=== PATIENT | female | born 1970 | race Caucasian/White ===

== ENCOUNTER 2017-02-18 20:18 | Emergency (ER) | payer MEDICAID ==
[2017-02-18 21:00] LABS: APPEARANCE,URINE CLEAR; BILIRUBIN,URINE NEGATIVE (NEGATIVE); GLUCOSE, URINE NEGATIVE (NEGATIVE); KETONES,URINE NEGATIVE (NEGATIVE); LEUKOCYTE ESTERASE,URINE TRACE (NEGATIVE); NITRITE,URINE NEGATIVE (NEGATIVE); PROTEIN,URINE NEGATIVE (NEGATIVE); URINE SPECIFIC GRAVITY 1.002; UROBILINOGEN,URINE NEGATIVE mg/dL (<2.0)
--- NOTE | 2017-02-18 21:05 | ER Document Report ---
ED Psych Disorder / Suicide - General Chief Complaint: Psych Problem Stated Complaint: PSYCH EVAL Time seen by provider: 21:05 Mode of Arrival: Ambulatory Information source: Patient TRAVEL OUTSIDE OF THE [place] IN LAST 30 DAYS: No - HPI Patient complains to provider of: Hallucinating Onset: Other - Chronic Onset was: Gradual Quality of pain: No pain Suicide Risk Factors: Lack of social support Associated symptoms: Auditory hallucinations Similar symptoms previously: Yes Notes: Patient is a 46-year-old female who presents to the emergency room complaining of hearing voices, states is been going on for quite some time but worsening over the past few days, she states she hears voices 24 hours a day 7 days a week , and feels as though she is "in the middle of an astrograph", States she hears "voices of my family trying to tell me that I hurt my family", states it makes her agitated at times because she cannot sort out or stop the voices, she also states that the voices recently told her that she is "owned by Satan", patient denies any homicidal ideations, states that she has had suicidal ideations in the past but none at this point in time, that she just wants the voices to stop , reports that she has no family, she does currently see a psychiatrist through [facility], in fact states she has an appointment tomorrow which she canceled because she came to the emergency room instead, she has not been taking her medication since at least December, as she states she was previously prescribed Seroquel and feels as though it is too strong for her - Related Data Allergies/Adverse Reactions: ciprofloxacin [From Cipro] Allergy (Verified 11/01/16 23:03) ciprofloxacin HCl [From Cipro] Allergy (Verified 11/01/16 23:03) divalproex sodium [From Depakote] Allergy (Verified 11/01/16 23:03) milk [Milk] Allergy (Verified 11/01/16 23:03) Penicillins Allergy (Verified 11/01/16 23:03) varenicline tartrate [From Chantix] Allergy (Verified 11/01/16 23:03) cheese Allergy (Uncoded 01/02/14 13:47) depo shot Allergy (Uncoded 01/02/14 13:47) oranges Allergy (Uncoded 01/02/14 13:47) Past Medical History - General Information source: Patient - Social History Smoking Status: Current Every Day Smoker Family History: Reviewed & Not Pertinent Neurological Medical History: Reports: Hx Migraine Psychiatric Medical History: Reports: Hx Anxiety, Hx Bipolar Disorder, Hx Depression, Hx Schizophrenia Past Surgical History: Reports: Hx Tubal Ligation - Immunizations Hx Diphtheria, Pertussis, Tetanus Vaccination: No Review of Systems - Review of Systems Constitutional: No symptoms reported EENT: No symptoms reported Cardiovascular: No symptoms reported Respiratory: No symptoms reported Gastrointestinal: No symptoms reported Genitourinary: No symptoms reported Female Genitourinary: No symptoms reported Musculoskeletal: No symptoms reported Skin: No symptoms reported Hematologic/Lymphatic: No symptoms reported Neurological/Psychological: See HPI -: Yes All other systems reviewed and negative Physical Exam - Vital signs Vitals: Resp 18 02/18/17 20:20 Interpretation: Normal - General General appearance: Appears well In distress: None - HEENT Head: Normocephalic, Atraumatic Eyes: Normal Pupils: PERRL - Respiratory Respiratory status: No respiratory distress Chest status: Nontender Breath sounds: Normal Chest palpation: Normal - Cardiovascular Rhythm: Regular Heart sounds: Normal auscultation Murmur: No - Abdominal Inspection: Normal Distension: No distension Bowel sounds: Normal Tenderness: Nontender Organomegaly: No organomegaly - Back Back: Normal, Nontender - Extremities General upper extremity: Normal inspection General lower extremity: Normal inspection - Neurological Neuro grossly intact: Yes Orientation: AAOx4 [place] Coma Scale Eye Opening: Spontaneous [place] Coma Scale Verbal: Oriented [place] Coma Scale Motor: Obeys Commands [place] Coma Scale Total: 15 - Psychological Associated symptoms: Auditory hallucinations, Manic, Tangential speech - Skin Skin Temperature: Warm Skin Moisture: Dry Skin Color: Normal Course - Re-evaluation Re-evalutation: 02/19/17 03:57 Patient resting comfortably, she is calm and cooperative, although appears slightly manic with tangential speech at times, she is requesting to be placed in a mental health institution for stabilization, she denies suicidal or homicidal ideation, and does not appear to be a danger to herself at the present time, therefore IVC paper work was not completed on patient, she will remain in the emergency room as a voluntary patient to be further evaluated by the mental health team in the morning to make further recommendations, she is otherwise medically clear for transfer or discharge - Vital Signs Vital signs: Temp Pulse Resp BP Pulse Ox 98.4 F 98 20 149/89 H 99 02/18/17 20:30 02/18/17 20:30 02/18/17 20:30 02/18/17 20:30 02/18/17 20:30 - Laboratory Result Diagrams: 02/18/17 21:04 02/18/17 21:04 Laboratory results interpreted by me: 02/18/17 02/18/17 20:37 21:04 Sodium 146.0 H Calcium 11.5 H Urine Blood SMALL H Ur Leukocyte Esterase TRACE H Salicylates < 1.0 L Acetaminophen < 10 L - EKG Interpretation by De EKG shows normal: Sinus rhythm Rate: Normal Rhythm: NSR Discharge - Discharge Clinical Impression: Mental disorder Condition: Stable Disposition: PSYCH HOSP/UNIT
[2017-02-18 21:17] LABS: ABSOLUTE BASOPHILS # (AUTO) 0.1 10^3/uL (0.0-0.2); ABSOLUTE EOSINOPHILS # (AUTO) 0.1 10^3/uL (0.0-0.6); ABSOLUTE LYMPHOCYTES (AUTO) 2.6 10^3/uL (0.5-4.7); ABSOLUTE MONOCYTES (AUTO) 0.5 10^3/uL (0.1-1.4); ABSOLUTE NEUT (AUTO) 4.2 10^3/uL (1.7-8.2); BASOPHILS % (AUTO) 0.7 % (0-2); EOSINOPHILS % (AUTO) 1.5 % (0-6); HEMATOCRIT 39.4 % (36.0-47.0); HEMOGLOBIN 13.5 g/dL (12.0-15.5); HGB HCT DIFFERENCE 1.1; LYMPHOCYTES % (AUTO) 34.5 % (13-45); MEAN CORPUSCULAR HEMOGLOBIN 31.6 pg (27.0-33.4); MEAN CORPUSCULAR HGB CONC 34.2 g/dL (32.0-36.0); MEAN CORPUSCULAR VOLUME 92 fl (80-97); MONOCYTES % (AUTO) 6.4 % (3-13); RED BLOOD COUNT 4.27 10^6/uL (3.72-5.28); RED CELL DISTRIBUTION WIDTH 13.4 % (11.5-14.0); SEGMENTED NEUTROPHILS % (AUTO) 56.9 % (42-78); WHITE BLOOD COUNT 7.4 10^3/uL (4.0-10.5)
[2017-02-18 21:38] LABS: ALANINE AMINOTRANSFERASE 20 U/L (9-52); ALBUMIN 4.8 g/dL (3.5-5.0); ALCOHOL < 10 mg/dL (NONE DETECTED); ALKALINE PHOSPHATASE 70 U/L (38-126); ANION GAP 14 (5-19); ASPARTATE AMINO TRANSFERASE 21 U/L (14-36); BILIRUBIN,DIRECT 0.1 mg/dL (0.0-0.4); BILIRUBIN,TOTAL 0.4 mg/dL (0.2-1.3); BLOOD UREA NITROGEN 7 mg/dL (7-20); CALCIUM 11.5 mg/dL (8.4-10.2); CARBON DIOXIDE 29 mmol/L (22-30); CHLORIDE 103 mmol/L (98-107); CREATININE RESULT 0.74 mg/dL (0.52-1.25); GLUCOSE 97 mg/dL (75-110); POTASSIUM 4.3 mmol/L (3.6-5.0); TOTAL PROTEIN 7.4 g/dL (6.3-8.2)
[2017-02-18] MEDS: ACETAMINOPHEN 325 MG TABLET PO ONE (22:10)
--- NOTE | 2017-02-19 07:25 | EKG REPORT ---
SEVERITY:- NORMAL ECG - SINUS RHYTHM : Confirmed by: Rocael Lacey MD 19-Feb-2017 07:24:55
[2017-02-19 08:47] LABS: APPEARANCE,URINE SLIGHTLY-CLOUDY; BILIRUBIN,URINE NEGATIVE (NEGATIVE); GLUCOSE, URINE NEGATIVE (NEGATIVE); KETONES,URINE NEGATIVE (NEGATIVE); LEUKOCYTE ESTERASE,URINE MODERATE (NEGATIVE); NITRITE,URINE POSITIVE (NEGATIVE); PROTEIN,URINE NEGATIVE (NEGATIVE); URINE SPECIFIC GRAVITY 1.012; UROBILINOGEN,URINE NEGATIVE mg/dL (<2.0)
[2017-02-19 09:11] LABS: URINE BARBITURATES SCREEN NEGATIVE; URINE METHADONE SCREEN NEGATIVE; URINE OPIATES LOW NEGATIVE; URINE PHENCYCLIDINE SCREEN NEGATIVE
--- NOTE | 2017-02-19 15:14 | ER Document Report ---
ED Psych Disorder / Suicide - General Chief Complaint: Psych Problem Stated Complaint: PSYCH EVAL Mode of Arrival: Ambulatory Information source: Patient - Patient has conflicting reports on concerns and symptoms. TRAVEL OUTSIDE OF THE [place] IN LAST 30 DAYS: No - HPI Patient complains to provider of: Hallucinating Normal mood: Yes - hyper verbal Associated symptoms: Normal affect, Auditory hallucinations - Patient endorses Auditory hallucinations however is not demonstrating behaviour of responding to internal stimuli Notes: Patient is a 46-year-old female who presents to the emergency room complaining of hearing voices, states is been going on for quite some time but worsening over the past few days, she states she hears voices 24 hours a day 7 days a week , and feels as though she is "in the middle of an astrograph", States she hears "voices of my family trying to tell me that I hurt my family", states it makes her agitated at times because she cannot sort out or stop the voices, she also states that the voices recently told her that she is "owned by Zones", patient denies any homicidal ideations, states that she has had suicidal ideations in the past but none at this point in time, that she just wants the voices to stop , reports that she has no family, she does currently see a psychiatrist through [facility], in fact states she has an appointment tomorrow which she canceled because she came to the emergency room instead, she has not been taking her medication since at least December, as she states she was previously prescribed Seroquel and feels as though it is too strong for her. Patient states that she hears voices all the time. She states they are making her suicidal and homicidal so she is arguing with them. She states she has been thinking of ways to hurt herself. she continued to disclose the serquel is not working but the voices are not as bad here in the hospital. She states the voices are "manipulating me and telling me I have EPS." She continued disclose she lives alone and has no family or friends. She states that she does better when she is with people so needs in patient but she has to get away from living with people in the half-way. The patient states she went to [facility] yesterday but they were unable to see her so she came to [facility]. When clinician asked for clarification because reports indicated the patient stated she cancelled her [facility] appointment, the patient confirmed that she made an appointment a month ago but she could not wait any longer. Patient provided a list of medications that have not worked in the past; "something is blocking it from working" because her mother is into witchcraft. Patient is alert and orientated to person, place, time and circumstance. Mood is euthymic, hyper verbal with normal affect. Patient denies suicidal and homicidal ideation; patient reports. Thought processes were mostly organized though rapid. Conversational speech was rapid, and at times tangential. Intellectual abilities were estimated in the low average range. Attention and concentration was fair. Insight, judgment, and impulse control was fair. 296.80 (F31.9) Unspecified Bipolar Disorder per history provided by patient Impression/Plan: Patient is psychiatrically clear for discharge. Patient has an identified out-patient mental health provider with [facility]; however, cancelled the appointment because she came to [facility]. Patient reports and demonstrated and delusions of christianity in references and auditory hallucinations; however, she demonstrated manipulative behaviour as evidenced by self reports to the ED attending physician with conflicting reports to clinician. She states that she stopped taking her medication (Seroquel) because it was too strong. Patient states she can tell the difference between her hallucinations and reality. Patient denies thoughts of harming herself or others. Dr. Otero was consulted on the care and management of this patient. Attending physician is in agreement with recommendations and disposition. - Related Data Allergies/Adverse Reactions: ciprofloxacin [From Cipro] Allergy (Verified 11/01/16 23:03) ciprofloxacin HCl [From Cipro] Allergy (Verified 11/01/16 23:03) divalproex sodium [From Depakote] Allergy (Verified 11/01/16 23:03) milk [Milk] Allergy (Verified 11/01/16 23:03) Penicillins Allergy (Verified 11/01/16 23:03) varenicline tartrate [From Chantix] Allergy (Verified 11/01/16 23:03) cheese Allergy (Uncoded 01/02/14 13:47) depo shot Allergy (Uncoded 01/02/14 13:47) oranges Allergy (Uncoded 01/02/14 13:47) Past Medical History - General Information source: Patient - Social History Smoking Status: Current Every Day Smoker Chew tobacco use (# tins/day): No Frequency of alcohol use: None Family History: Reviewed & Not Pertinent Neurological Medical History: Reports: Hx Migraine Psychiatric Medical History: Reports: Hx Anxiety, Hx Bipolar Disorder, Hx Depression, Hx Schizophrenia Past Surgical History: Reports: Hx Tubal Ligation - Immunizations Hx Diphtheria, Pertussis, Tetanus Vaccination: No Physical Exam - Vital signs Vitals: Resp 18 02/18/17 20:20 Course - Vital Signs Vital signs: Temp Pulse Resp BP Pulse Ox 97.8 F 73 18 109/76 100 02/19/17 11:49 02/19/17 11:49 02/19/17 11:49 02/19/17 11:49 02/19/17 11:49 - Laboratory Result Diagrams: 02/18/17 21:04 02/18/17 21:04 Laboratory results interpreted by me: 02/18/17 02/18/17 02/19/17 20:37 21:04 08:00 Sodium 146.0 H Calcium 11.5 H Urine Blood SMALL H Urine Nitrite POSITIVE H Ur Leukocyte Esterase TRACE H MODERATE H Urine Ascorbic Acid 20 H Salicylates < 1.0 L Acetaminophen < 10 L Discharge - Discharge Clinical Impression: Mental health disorder Condition: Stable Disposition: HOME, SELF-CARE Additional Instructions: Hallucinations You seem to be having hallucinations. Hallucinations are seeing, hearing, or feeling things that don't exist. These symptoms commonly occur with drug abuse and schizophrenia. Drugs like PCP, LSD, MDMA, peyote, and "psychedelic mushrooms" can cause frightening hallucinations. Users of methamphetamine or crack cocaine often see and feel bugs crawling on their skin. Patients with schizophrenia may hear voices that no one else can hear. The delusions of schizophrenia often involve conspiracies or relationships that are not real. When symptoms are due to drug abuse, the mental state usually improves as the drug wears off. Someone you trust should be with you until you are better, to protect you and calm your fears. Tranquilizer medicine is helpful at controlling hallucinations, anxiety, and deluded thoughts. Get a proper diet and enough sleep. Most patients do very well when they get proper medical treatment and social support. You should return at once if your symptoms get worse, if you are having suicidal thoughts or thoughts about hurting others, or if you feel that you are in danger. Patient is recommended to follow up with out patient services through [facility]. Referrals: RAHUL CARTWRIGHT MD [Primary Care Provider] - Follow up as needed
[2017-02-19 15:46] VITALS: BP 131/78
[2017-02-19] MEDS ORDERED: OLANZAPINE INJ/PF 10 MG SDV IM ONE (16:17)
== END 2017-02-19 16:27 | disposition home or self-care (01) ==
LOC: ER 20:18
DX: F99 Mental disorder, not otherwise specified (principal); F31.9 Bipolar disorder, unspecified; R44.3 Hallucinations, unspecified; F17.200 Nicotine dependence, unspecified, uncomplicated
CPT/HCPCS: 93005; 99284; 36415; 80307 ×4; 84703; 85025; 80053; 81001; 93010; J3490

== ENCOUNTER → 2017-04-23 | Outpatient (CLI) | payer MEDICAID ==
--- NOTE | 2017-04-23 13:29 | WOMENS IMAGING REPORT ---
EXAM DESCRIPTION: BILAT SCREENING MAMMO W/CAD COMPLETED DATE/TIME: 04/23/2017 12:32 pm REASON FOR STUDY: Z12.31, ROUTINE SCREENING MAMMO Z12.31 ENCNTR SCREEN MAMMOGRAM FOR MALIGNANT NEOP LASM OF MARCOS COMPARISON: 2012, 2013. TECHNIQUE: Standard craniocaudal and mediolateral oblique views of each breast recorded using digita l acquisition. LIMITATIONS: None. FINDINGS: No masses, calcifications or architectural distortion. No areas of suspicion. Read with the assistance of CAD. .[facility] - R2 Cenova Version 1.3 .[facility] Imaging - R2 Cenova Version 1.3 .[facility] Imaging - R2 Cenova Version 2.4 .[facility] [place] R2 Cenova Version 2.4 .[facility] - R2 Hair Clipper Power Version 9.2 IMPRESSION: NORMAL MAMMOGRAM. BIRADS 1. BREAST DENSITY: c. The breasts are heterogeneously dense, which may obscure small masses. BIRAD: 1 NEGATIVE RECOMMENDATION: ROUTINE SCREENING COMMENT: The patient has been notified of the results by letter per SA requirements. Additional no tification policies are in place for contacting patient with suspicious or incomplete findings. Quality ID #[id number]: The [employer] recommends an annual screening mammogram for women aged 40 years or over. This facility utilizes a reminder system to ensure that all patients receive reminder letters, and/or direct phone calls for appointments. This includes reminders for routine scr eening mammograms, diagnostic mammograms, or other Breast Imaging Interventions when appropriate. Th is patient will be placed in the appropriate reminder system. The [employer] (ACR) has developed recommendations for screening MRI of the breast s in certain patient populations, to be used in conjunction with mammography. Breast MRI surveillanc e may be appropriate for women with more than 20% lifetime risk of developing breast cancer as deter mined by genetic testing, significant family history of the disease, or history of mantle radiation f or Hodgkins Disease. ACR Practice Guidelines 2008. TECHNICAL DOCUMENTATION: FINDING NUMBER: (1) ASSESSMENT: (1) JOB ID: [id number] [employer]- All Rights Reserved
== END ==
LOC: WI 11:32
PROVIDERS: ATTEND Nurse Practitioner Family
DX: Z12.31 Encounter for screening mammogram for malignant neoplasm of breast (principal)
CPT/HCPCS: 77067; G0202

== ENCOUNTER → 2018-05-18 | Outpatient (CLI) | payer MEDICAID ==
--- NOTE | 2018-05-18 13:10 | WOMENS IMAGING REPORT ---
EXAM DESCRIPTION: BILAT SCREENING MAMMO W/CAD COMPLETED DATE/TIME: 05/18/2018 12:51 pm REASON FOR STUDY: BILATERAL MAMMO SCREENING/Z12.31 Z12.31 ENCNTR SCREEN MAMMOGRAM FOR MALIGNANT FRED PLASM OF MARCOS COMPARISON: Multiple since 2012 TECHNIQUE: Standard craniocaudal and mediolateral oblique views of each breast recorded using [employer] J[employer] l acquisition. LIMITATIONS: None. FINDINGS: RIGHT BREAST MASSES: No suspicious masses. CALCIFICATIONS: No new or suspicious calcifications. ARCHITECTURAL DISTORTION: None. DEVELOPING DENSITY: None. ASYMMETRY: None noted. OTHER: No other significant findings. LEFT BREAST MASSES: In the left breast 11 to 12 o'clock position, about 6 cm from the nipple there is a mammograp hic nodule versus superimposed shadows. This requires further investigation with cone compression vi ews, left 90 mediolateral view, and left breast ultrasound. CALCIFICATIONS: No new or suspicious calcifications. ARCHITECTURAL DISTORTION: None. DEVELOPING DENSITY: None. ASYMMETRY: None noted. OTHER: No other significant findings. Read with the assistance of CAD. .[facility] - R2 Cenova Version 1.3 .[facility] Imaging - R2 Cenova Version 1.3 .[facility] Imaging - R2 Cenova Version 2.4 .[facility] - R2 Cenova Version 2.4 .[facility] - R2 Solution Design And Analysis Manager Version 9.2 IMPRESSION: No mammographic evidence for malignancy right breast. Nodule versus superimposed shadows 11 to 12 o'clock position left breast, for which diagnostic mammog judy and ultrasound are recommended for followup BREAST DENSITY: b. There are scattered areas of fibroglandular density. BIRAD: 0 Incomplete: Needs Additional Imaging Evaluation and/or prior Mammograms for Comparison. RECOMMENDATION: RECOMMENDED FOLLOW-UP: Left breast diagnostic mammograms and ultrasound The patient will be contacted for additional imaging. COMMENT: The patient has been notified of the results by letter per SA requirements. Additional no tification policies are in place for contacting patient with suspicious or incomplete findings. Quality ID #[id number]: The [employer] recommends an annual screening mammogram for women aged 40 years or over. This facility utilizes a reminder system to ensure that all patients receive reminder letters, and/or direct phone calls for appointments. This includes reminders for routine scr eening mammograms, diagnostic mammograms, or other Breast Imaging Interventions when appropriate. Th is patient will be placed in the appropriate reminder system. The [employer] (ACR) has developed recommendations for screening MRI of the breast s in certain patient populations, to be used in conjunction with mammography. Breast MRI surveillanc e may be appropriate for women with more than 20% lifetime risk of developing breast cancer as deter mined by genetic testing, significant family history of the disease, or history of mantle radiation f or Hodgkins Disease. ACR Practice Guidelines 2008. TECHNICAL DOCUMENTATION: FINDING NUMBER: (1) ASSESSMENT: (1) JOB ID: [id number] [employer]- All Rights Reserved Reading location - IP/workstation name: [facility]
== END ==
LOC: WI 12:44
PROVIDERS: ATTEND Nurse Practitioner Family
DX: Z12.31 Encounter for screening mammogram for malignant neoplasm of breast (principal); R92.0 Mammographic microcalcification found on diagnostic imaging of breast
CPT/HCPCS: 77067

== ENCOUNTER → 2018-05-28 | Outpatient (CLI) | payer MEDICAID ==
--- NOTE | 2018-05-28 17:07 | WOMENS IMAGING REPORT ---
EXAM DESCRIPTION: LEFT DIAGNOSTIC MAMMO W/CAD; U/S BREAST UNILAT LIMITED COMPLETED DATE/TIME: 05/28/2018 11:35 am; 05/28/2018 11:57 am REASON FOR STUDY: BREAST LEFT LUMP/N63.22; LEFT BREAST; N63.22 N63.0 UNSPECIFIED LUMP IN UNSPECIFIE D BREAST COMPARISON: None. TECHNIQUE: Cone compression craniocaudal and mediolateral oblique images of the breast recorded with digital acquisition. Left breast 90 mediolateral view and MLO view. Left breast ultrasound was also performed. LIMITATIONS: None. FINDINGS: BREAST: Left MASSES: No suspicious masses. Findings described on screening mammograms 05/18/2018 likely represented superimposed shadows. No discrete mammographic mass is identified in the 11 to 12 o'clock position left breast. CALCIFICATIONS: No new or suspicious calcifications. ARCHITECTURAL DISTORTION: None. DEVELOPING DENSITY: None. ASYMMETRY: None noted. OTHER: No other significant findings. Read with the assistance of CAD. .[facility] - R2 Cenova Version 1.3 .[facility] Imaging - R2 Cenova Version 1.3 .[facility] Imaging - R2 Cenova Version 2.4 .[facility] [place] R2 Cenova Version 2.4 .[facility] - R2 Desk Reporter Version 9.2 Left breast ultrasound: Ultrasound of the left breast from the 10 o'clock to the 1 to 2 o'clock position was performed. Ther e is a 4 mm benign intramammary lymph node at the 1 o'clock position. No other focal findings. No c ysts. No masses. No worrisome acoustic absorption IMPRESSION: No mammographic or sonographic evidence for malignancy right breast BREAST DENSITY: b. There are scattered areas of fibroglandular density. BIRAD: 1 Negative. RECOMMENDATION: RECOMMENDED FOLLOW UP: Please continue yearly bilateral screening mammography/tomosy nthesis in May 2019 SPECIFIC INTERVENTION/IMAGING/CONSULTATION RECOMMENDED:No additional intervention/ imaging/consultati on needed at this time. COMMUNICATION:Patient notified by letter COMMENT: The patient has been notified of the results by letter per MQSA requirements. Additional no tification policies are in place for contacting patient with suspicious or incomplete findings. Quality ID #[id number]: The [place] [employer] recommends an annual screening mammogram for women aged 40 years or over. This facility utilizes a reminder system to ensure that all patients receive reminder letters, and/or direct phone calls for appointments. This includes reminders for routine scr eening mammograms, diagnostic mammograms, or other Breast Imaging Interventions when appropriate. Th is patient will be placed in the appropriate reminder system. The [place] [employer] (ACR) has developed recommendations for screening MRI of the breast s in certain patient populations, to be used in conjunction with mammography. Breast MRI surveillanc e may be appropriate for women with more than 20% lifetime risk of developing breast cancer as deter mined by genetic testing, significant family history of the disease, or history of mantle radiation f or Hodgkins Disease. ACR Practice Guidelines 2008. TECHNICAL DOCUMENTATION: FINDING NUMBER: (1) ASSESSMENT: (1) JOB ID: [id number] [employer]- All Rights Reserved Reading location - IP/workstation name: [email or web address]
--- NOTE | 2018-05-28 17:07 | WOMENS IMAGING REPORT ---
EXAM DESCRIPTION: LEFT DIAGNOSTIC MAMMO W/CAD; U/S BREAST UNILAT LIMITED COMPLETED DATE/TIME: 05/28/2018 11:35 am; 05/28/2018 11:57 am REASON FOR STUDY: BREAST LEFT LUMP/N63.22; LEFT BREAST; N63.22 N63.0 UNSPECIFIED LUMP IN UNSPECIFIE D BREAST COMPARISON: None. TECHNIQUE: Cone compression craniocaudal and mediolateral oblique images of the breast recorded with digital acquisition. Left breast 90 mediolateral view and MLO view. Left breast ultrasound was also performed. LIMITATIONS: None. FINDINGS: BREAST: Left MASSES: No suspicious masses. Findings described on screening mammograms 05/18/2018 likely represented superimposed shadows. No discrete mammographic mass is identified in the 11 to 12 o'clock position left breast. CALCIFICATIONS: No new or suspicious calcifications. ARCHITECTURAL DISTORTION: None. DEVELOPING DENSITY: None. ASYMMETRY: None noted. OTHER: No other significant findings. Read with the assistance of CAD. .[facility] - R2 Cenova Version 1.3 .[facility] - R2 Cenova Version 1.3 .[facility] - R2 Cenova Version 2.4 .[facility] [place] R2 Cenova Version 2.4 .[facility] - R2 Band Sawyer Version 9.2 Left breast ultrasound: Ultrasound of the left breast from the 10 o'clock to the 1 to 2 o'clock position was performed. Ther e is a 4 mm benign intramammary lymph node at the 1 o'clock position. No other focal findings. No c ysts. No masses. No worrisome acoustic absorption IMPRESSION: No mammographic or sonographic evidence for malignancy right breast BREAST DENSITY: b. There are scattered areas of fibroglandular density. BIRAD: 1 Negative. RECOMMENDATION: RECOMMENDED FOLLOW UP: Please continue yearly bilateral screening mammography/tomosy nthesis in May 2019 SPECIFIC INTERVENTION/IMAGING/CONSULTATION RECOMMENDED:No additional intervention/ imaging/consultati on needed at this time. COMMUNICATION:Patient notified by letter COMMENT: The patient has been notified of the results by letter per MQSA requirements. Additional no tification policies are in place for contacting patient with suspicious or incomplete findings. Quality ID #[id number]: The [employer] recommends an annual screening mammogram for women aged 40 years or over. This facility utilizes a reminder system to ensure that all patients receive reminder letters, and/or direct phone calls for appointments. This includes reminders for routine scr eening mammograms, diagnostic mammograms, or other Breast Imaging Interventions when appropriate. Th is patient will be placed in the appropriate reminder system. The [employer] ([employer]) has developed recommendations for screening MRI of the breast s in certain patient populations, to be used in conjunction with mammography. Breast MRI surveillanc e may be appropriate for women with more than 20% lifetime risk of developing breast cancer as deter mined by genetic testing, significant family history of the disease, or history of mantle radiation f or Hodgkins Disease. ACR Practice Guidelines 2008. TECHNICAL DOCUMENTATION: FINDING NUMBER: (1) ASSESSMENT: (1) JOB ID: [id number] [employer]- All Rights Reserved Reading location - IP/workstation name: [email or web address]
== END ==
LOC: WI 11:15
PROVIDERS: ATTEND Nurse Practitioner Family
DX: N63.22 Unspecified lump in the left breast, upper inner quadrant (principal)
CPT/HCPCS: 76642

== ENCOUNTER 2018-07-09 15:21 | Emergency (ER) | payer MEDICAID ==
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
[2018-07-09 16:47] LABS: ABSOLUTE BASOPHILS # (AUTO) 0.1 10^3/uL (0.0-0.2); ABSOLUTE EOSINOPHILS # (AUTO) 0.1 10^3/uL (0.0-0.6); ABSOLUTE LYMPHOCYTES (AUTO) 2.2 10^3/uL (0.5-4.7); ABSOLUTE MONOCYTES (AUTO) 0.5 10^3/uL (0.1-1.4); ABSOLUTE NEUT (AUTO) 6.1 10^3/uL (1.7-8.2); BASOPHILS % (AUTO) 1.1 % (0-2); EOSINOPHILS % (AUTO) 0.9 % (0-6); HEMATOCRIT 45.3 % (36.0-47.0); HEMOGLOBIN 15.2 g/dL (12.0-15.5); LYMPHOCYTES % (AUTO) 24.9 % (13-45); MEAN CORPUSCULAR HEMOGLOBIN 30.7 pg (27.0-33.4); MEAN CORPUSCULAR HGB CONC 33.5 g/dL (32.0-36.0); MEAN CORPUSCULAR VOLUME 92 fl (80-97); MONOCYTES % (AUTO) 5.9 % (3-13); PLATELET COUNT 323 10^3/uL (150-450); RED BLOOD COUNT 4.94 10^6/uL (3.72-5.28); RED CELL DISTRIBUTION WIDTH 13.7 % (11.5-14.0); SEGMENTED NEUTROPHILS % (AUTO) 67.2 % (42-78); TOTAL CELLS COUNTED % (AUTO) 100 %
[2018-07-09 16:49] LABS: ALANINE AMINOTRANSFERASE 18 U/L (9-52); ALBUMIN 4.8 g/dL (3.5-5.0); ALKALINE PHOSPHATASE 110 U/L (38-126); ANION GAP 16 (5-19); ASPARTATE AMINO TRANSFERASE 20 U/L (14-36); BILIRUBIN,DIRECT 0.4 mg/dL (0.0-0.4); BILIRUBIN,TOTAL 0.8 mg/dL (0.2-1.3); BLOOD UREA NITROGEN 9 mg/dL (7-20); CARBON DIOXIDE 28 mmol/L (22-30); CHLORIDE 101 mmol/L (98-107); GLUCOSE 103 mg/dL (75-110); POTASSIUM 4.1 mmol/L (3.6-5.0); SODIUM 144.5 mmol/L (137-145); TOTAL PROTEIN 7.9 g/dL (6.3-8.2)
[2018-07-09 16:51] LABS: ACETAMINOPHEN < 10 ug/mL (10-30); ALCOHOL < 10 mg/dL (NONE DETECTED); SALICYLATE < 1.0 mg/dL (2.0-20.0)
[2018-07-09 17:40] LABS: APPEARANCE,URINE SLIGHTLY-CLOUDY; BILIRUBIN,URINE NEGATIVE (NEGATIVE); COLOR,URINE YELLOW; GLUCOSE, URINE NEGATIVE (NEGATIVE); KETONES,URINE NEGATIVE (NEGATIVE); LEUKOCYTE ESTERASE,URINE LARGE (NEGATIVE); NITRITE,URINE NEGATIVE (NEGATIVE); PROTEIN,URINE NEGATIVE (NEGATIVE); URINE SPECIFIC GRAVITY 1.009; UROBILINOGEN,URINE NEGATIVE mg/dL (<2.0)
--- NOTE | 2018-07-09 17:53 | EKG REPORT ---
SEVERITY:- NORMAL ECG - SINUS RHYTHM : Confirmed by: Rocael Lacey MD 09-Jul-2018 17:52:12
[2018-07-09 18:02] LABS: URINE AMPHETAMINES SCREEN NEGATIVE; URINE BARBITURATES SCREEN NEGATIVE; URINE BENZODIAZEPINES SCREEN NEGATIVE; URINE COCAINE SCREEN NEGATIVE; URINE MARIJUANA (THC) SCREEN NEGATIVE; URINE METHADONE SCREEN NEGATIVE; URINE PHENCYCLIDINE SCREEN NEGATIVE
[2018-07-09] MEDS ORDERED: IBUPROFEN 600 MG TABLET PO ONE (18:49)
[2018-07-09] MEDS ORDERED: HALOPERIDOL LACTATE INJ 5 MG/1 ML VIAL IM PRN (18:50)
[2018-07-09] MEDS ORDERED: SULFAMETHOXAZOLE/TRIMETHOPRIM 800-160 MG TABLET PO ONE (18:52)
--- NOTE | 2018-07-10 09:57 | ER Document Report ---
Doctor's Note Notes: 07/10/18 09:57 Patient has been seen and evaluated resting comfortably no acute distress. Laboratory values previous provider note and vital signs have been evaluated. Patient otherwise looks to be stable for disposition/transfer. Resting comfortably eating breakfast no complaints at this time.
[2018-07-10 10:26] VITALS: BP 117/64
--- NOTE | 2018-07-12 09:37 | PSYCHOLOGICAL NOTE ---
Psych Note - Psych Note Psych Note: Reason for Consult: psychosis pt to pivot with complaints of feeling suicidal for several weeks. patient has history of schizoaffective disorder; bipolar type and is reported to be non compliant with medications. Patient reports having visual and auditory hallucinations. Patient reports she "needs psychiatric help." She disclosed that she "hears voices, is dizzy, sees a light, has major depression, anxiety, social anxiety, phobias, and fears." She confirm she has an outpatient mental health provider with [facility] but has not gone since February when she stopped taking her medications; "It doesn't work so I stopped taking them." When asked about family or friends as a support system, patient responded that she does not talk to them then stated she thinks she might have killed her family. Patient provided the names Farooq Wall, Nichelle Wall, and Farooq Wall Jr. (clinician notes a cursory internet search did not provide any information on possible deaths). Clinician remind the patient that during a previous visit in October of 2016 she disclosed that children were picked up by her [id number] and now live with her ex-. (11/03/2016 "She continued to state that her children were picked up by her [id number] and she has not had any contact with them for the most part in 7 years. She states the children live with her ex-. She states that when she does have contact the children are very short with her and don't want to be with her"). After the patient was reminded of what she disclosed she stated "you know what happened to my family...oh, but I was just thinking that is what happened back then...don't know for sure that is what happened." Patient disclosed distress at living alone; "there is nothing there for me...I am by myself." When it was explained the patient can not use inpatient psychiatric treatment for social needs (ie not living alone) she asked about assisted living. Patient started to become agitated and stated "I live alone...I have no connection to others...I am trying to reach out and make a connection....I should just kill myself then....no one else is forced to live alone...why are you making me live alone..." Patient is alert and orientated to person, place, time and circumstance. Mood is overall dyphoric with moments of irritability when she perceives not getting help; affect is congruent with mood. Patient endorses passive suicidal ideation , ie no plan means or intent. She denies homicidal ideation. Patient discloses a fixated delusion of having killed her family; this has been documented for at least the last 4 years. Clinician did conduct an internet search of the names the patient provided; no information was listed. thought process for organized and linear. Thought content was focused on not wanting to live alone. Eye contact was well maintained. Conversational speech was within normal rate tone and prosody. Attention and concentration are fair. Insight, judgment and impulse control are fair. No Medication recommendations at this time 295.70 (F25.0) Schizoaffective Disorder, Bipolar type per history provided by patient Impression/Plan: Patient is clear from acute psychiatric services. Patient has an identified out-patient mental health provider with [facility]; however, did not make an appointment with them. She was considered a poor historian of any information as her story changed when talking to different [facility] staff and each time an answer or solution was provided. Patient disclosed to [facility] ED staff upon arrival she had thoughts of cutting her wrist, her attending physician was told she wanted to use her neighbor's gun or drive off a bridge. She continued to disclose to her attending physician that she stopped taking her medication because she was afraid she would overdose on them; however, we she talked to this clinician she stated she stopped taking them because they did not work. when speaking to this clinician she spoke in vague reference to suicide and did not provide a specific plan when provided appropriate treatment plan; "I should just kill myself then...no one else is forced to live alone." She became frustrated because she did not receive the answers she wanted, rather the information necessary to assist her in her mental health treatment and social treatment. Patient appears to be very focused on not living alone and requested inpatient psychiatric treatment or assisted living. She endorsed auditory hallucinations but reported they are daily and are normal; patient did not demonstrate any indication she was responding to internal stimuli, ie organized and linear thought processes, good eye contact, and conversational speech was within normal rate tone and prosody. Dr. Otero was consulted on the care and management of this patient attending physician is in agreement with recommendations and disposition.
== END 2018-07-10 10:26 | disposition home or self-care (01) ==
LOC: ER 15:21
DX: F25.0 Schizoaffective disorder, bipolar type (principal); T43.596A Underdosing of other antipsychotics and neuroleptics, initial encounter; T43.226A Underdosing of selective serotonin reuptake inhibitors, initial encounter; T42.1X6A Underdosing of iminostilbenes, initial encounter; Z91.128 Patient's intentional underdosing of medication regimen for other reason; Z91.14 Patient's other noncompliance with medication regimen; I10 Essential (primary) hypertension; R45.851 Suicidal ideations; F41.9 Anxiety disorder, unspecified; R51 Headache; Z91.5 Personal history of self-harm; Z88.1 Allergy status to other antibiotic agents; Z88.8 Allergy status to other drugs, medicaments and biological substances; Z91.011 Allergy to milk products; Z91.018 Allergy to other foods
CPT/HCPCS: 93005; 99285; 96372; 36415; 87086; 80307 ×4; 85025; 81025; 87088; 80053; 81001; 87186; 93010; J1630; J3490 ×2

== ENCOUNTER 2018-11-08 23:48 | Emergency (ER) | payer MEDICAID, OTHER ==
[2018-11-09] MEDS ORDERED: DIPH/PERTUSS(ACELL)/TETANUS VAC/PF 0.5 ML SYR (>=10YO) IM ONE (00:02)
[2018-11-09] MEDS ORDERED: IBUPROFEN 600 MG TABLET PO ONE ×2 (00:02→01:39)
[2018-11-09] MEDS ORDERED: ACETAMINOPHEN 325 MG TABLET PO ONE ×2 (00:02→01:39)
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
[2018-11-09] MEDS ORDERED: LIDOCAINE 1%/EPINEPHRINE INJ 20 ML VIAL INJ ONE (00:26)
--- NOTE | 2018-11-09 00:31 | RADIOLOGY REPORT (SQ) ---
EXAM DESCRIPTION: XR FINGERS COMPLETED DATE/TME: 11/09/2018 00:02 CLINICAL HISTORY: 48 years, Female, 2nd digit, crush injury COMPARISON: None. NUMBER OF VIEWS: 3 TECHNIQUE: 3 view second digit LIMITATIONS: None. FINDINGS: Soft tissue swelling of the second digit. Negative for acute fracture or dislocation. Joint spaces are preserved IMPRESSION: Soft tissue injury of the second digit. No acute osseous abnormality copyright 2010 [email or web address]- All Rights Reserved
[2018-11-09 02:26] VITALS: BP 109/74
== END 2018-11-09 02:26 | disposition home or self-care (01) ==
LOC: ER 23:48
DX: S61.211A Laceration without foreign body of left index finger without damage to nail, initial encounter (principal); S69.92XA Unspecified injury of left wrist, hand and finger(s), initial encounter; W22.09XA Striking against other stationary object, initial encounter; Z88.0 Allergy status to penicillin; Z88.3 Allergy status to other anti-infective agents; Z91.011 Allergy to milk products; Z23 Encounter for immunization
CPT/HCPCS: 99284; 90471; 73140; 90715; 12001; J3490 ×3

== ENCOUNTER 2018-11-19 16:19 | Emergency (ER) | payer MEDICAID ==
[2018-11-19 16:25] VITALS: BP 116/66
--- NOTE | 2018-11-19 16:35 | ER Document Report ---
ED Medical Screen (RME) - General Chief Complaint: Finger Injury Stated Complaint: FINGER SWELLING Time Seen by Provider: 11/19/18 16:32 Notes: Left index finger distal phalanx abscess, after removal of the suture material. Patient states she is hearing voices and feeling depressed and suicidal. TRAVEL OUTSIDE OF THE [place] IN LAST 30 DAYS: No - Related Data Allergies/Adverse Reactions: ciprofloxacin [From Cipro] Allergy (Verified 11/19/18 16:21) ciprofloxacin HCl [From Cipro] Allergy (Verified 11/19/18 16:21) divalproex sodium [From Depakote] Allergy (Verified 11/19/18 16:21) milk [Milk] Allergy (Verified 11/19/18 16:21) Penicillins Allergy (Verified 11/19/18 16:21) varenicline tartrate [From Chantix] Allergy (Verified 11/19/18 16:21) cheese Allergy (Uncoded 11/19/18 16:21) depo shot Allergy (Uncoded 11/19/18 16:21) oranges Allergy (Uncoded 11/19/18 16:21) Past Medical History Neurological Medical History: Reports: Hx Migraine Renal/ Medical History: Denies: Hx Peritoneal Dialysis Psychiatric Medical History: Reports: Hx Anxiety, Hx Bipolar Disorder, Hx Depression, Hx Schizophrenia Past Surgical History: Reports: Hx Tubal Ligation - Immunizations Hx Diphtheria, Pertussis, Tetanus Vaccination: No Physical Exam - Vital signs Vitals: Temp Pulse Resp BP Pulse Ox 97.9 F 59 L 16 116/66 98 11/19/18 16:23 11/19/18 16:23 11/19/18 16:23 11/19/18 16:23 11/19/18 16:23 Course - Vital Signs Vital signs: Temp Pulse Resp BP Pulse Ox 97.9 F 59 L 16 116/66 98 11/19/18 16:23 11/19/18 16:23 11/19/18 16:23 11/19/18 16:23 11/19/18 16:23
[2018-11-19 17:12] LABS: ABSOLUTE EOSINOPHILS # (AUTO) 0.1 10^3/uL (0.0-0.6); ABSOLUTE LYMPHOCYTES (AUTO) 2.5 10^3/uL (0.5-4.7); ABSOLUTE MONOCYTES (AUTO) 0.4 10^3/uL (0.1-1.4); ABSOLUTE NEUT (AUTO) 4.6 10^3/uL (1.7-8.2); BASOPHILS % (AUTO) 0.4 % (0-2); EOSINOPHILS % (AUTO) 1.2 % (0-6); HEMATOCRIT 43.1 % (36.0-47.0); HEMOGLOBIN 14.6 g/dL (12.0-15.5); LYMPHOCYTES % (AUTO) 32.5 % (13-45); MEAN CORPUSCULAR HEMOGLOBIN 31.4 pg (27.0-33.4); MEAN CORPUSCULAR HGB CONC 33.9 g/dL (32.0-36.0); MEAN CORPUSCULAR VOLUME 93 fl (80-97); MONOCYTES % (AUTO) 5.8 % (3-13); PLATELET COUNT 309 10^3/uL (150-450); RED BLOOD COUNT 4.65 10^6/uL (3.72-5.28); RED CELL DISTRIBUTION WIDTH 14.3 % (11.5-14.0); SEGMENTED NEUTROPHILS % (AUTO) 60.1 % (42-78); TOTAL CELLS COUNTED % (AUTO) 100 %; WHITE BLOOD COUNT 7.7 10^3/uL (4.0-10.5)
[2018-11-19 17:14] LABS: APPEARANCE,URINE CLEAR; BILIRUBIN,URINE NEGATIVE (NEGATIVE); COLOR,URINE COLORLESS; GLUCOSE, URINE NEGATIVE (NEGATIVE); KETONES,URINE NEGATIVE (NEGATIVE); LEUKOCYTE ESTERASE,URINE NEGATIVE (NEGATIVE); NITRITE,URINE NEGATIVE (NEGATIVE); PROTEIN,URINE NEGATIVE (NEGATIVE); URINE SPECIFIC GRAVITY 1.002; UROBILINOGEN,URINE NEGATIVE mg/dL (<2.0)
[2018-11-19 17:26] LABS: ALANINE AMINOTRANSFERASE 10 U/L (9-52); ALBUMIN 4.9 g/dL (3.5-5.0); ALKALINE PHOSPHATASE 90 U/L (38-126); ANION GAP 11 (5-19); ASPARTATE AMINO TRANSFERASE 19 U/L (14-36); BILIRUBIN,DIRECT 0.3 mg/dL (0.0-0.4); BILIRUBIN,TOTAL 0.4 mg/dL (0.2-1.3); BLOOD UREA NITROGEN 6 mg/dL (7-20); CARBON DIOXIDE 29 mmol/L (22-30); CHLORIDE 103 mmol/L (98-107); GLUCOSE 94 mg/dL (75-110); POTASSIUM 4.3 mmol/L (3.6-5.0); SALICYLATE 1.2 mg/dL (2.0-20.0); SODIUM 142.8 mmol/L (137-145); TOTAL PROTEIN 7.5 g/dL (6.3-8.2)
[2018-11-19 17:28] LABS: ACETAMINOPHEN < 10 ug/mL (10-30); ALCOHOL < 10 mg/dL (NONE DETECTED); URINE AMPHETAMINES SCREEN NEGATIVE; URINE BARBITURATES SCREEN NEGATIVE; URINE BENZODIAZEPINES SCREEN NEGATIVE; URINE COCAINE SCREEN NEGATIVE; URINE MARIJUANA (THC) SCREEN NEGATIVE; URINE METHADONE SCREEN NEGATIVE; URINE PHENCYCLIDINE SCREEN NEGATIVE
--- NOTE | 2018-11-19 17:36 | ER Document Report ---
ED General - General Chief Complaint: Finger Injury Stated Complaint: FINGER SWELLING Time Seen by Provider: 11/19/18 16:32 Mode of Arrival: Ambulatory Information source: Patient Notes: This is a 48-year-old female with recent sutures to the left index finger presents with concerns for possible finger infection. She had her stitches taken out yesterday. Tetanus is up-to-date. Patient did reported depression to the triage person. She denies any suicidal ideation at this time. She has no active hallucinations and appears appropriate on exam. TRAVEL OUTSIDE OF THE [place] IN LAST 30 DAYS: No - HPI Onset: Last week Onset/Duration: Gradual Quality of pain: No pain Severity: None Pain Level: Denies Associated symptoms: denies: Chest pain, Fever, Shortness of breath Exacerbated by: Denies Relieved by: Denies Similar symptoms previously: Yes Recently seen / treated by doctor: Yes - Related Data Allergies/Adverse Reactions: ciprofloxacin [From Cipro] Allergy (Verified 11/19/18 16:21) ciprofloxacin HCl [From Cipro] Allergy (Verified 11/19/18 16:21) divalproex sodium [From Depakote] Allergy (Verified 11/19/18 16:21) milk [Milk] Allergy (Verified 11/19/18 16:21) Penicillins Allergy (Verified 11/19/18 16:21) varenicline tartrate [From Chantix] Allergy (Verified 11/19/18 16:21) cheese Allergy (Uncoded 11/19/18 16:21) depo shot Allergy (Uncoded 11/19/18 16:21) oranges Allergy (Uncoded 11/19/18 16:21) Past Medical History - General Information source: Patient - Social History Smoking Status: Former Smoker Cigarette use (# per day): No Chew tobacco use (# tins/day): No Frequency of alcohol use: None Drug Abuse: None Lives with: Family Family History: Reviewed & Not Pertinent Patient has suicidal ideation: Yes Patient has homicidal ideation: Yes Neurological Medical History: Reports: Hx Migraine Renal/ Medical History: Denies: Hx Peritoneal Dialysis Psychiatric Medical History: Reports: Hx Anxiety, Hx Bipolar Disorder, Hx Depression, Hx Schizophrenia Past Surgical History: Reports: Hx Tubal Ligation - Immunizations Hx Diphtheria, Pertussis, Tetanus Vaccination: No Review of Systems - Review of Systems Constitutional: denies: Chills, Fever EENT: No symptoms reported Cardiovascular: No symptoms reported Respiratory: No symptoms reported Gastrointestinal: No symptoms reported Genitourinary: No symptoms reported Female Genitourinary: No symptoms reported Musculoskeletal: See HPI Skin: No symptoms reported Hematologic/Lymphatic: No symptoms reported Neurological/Psychological: Depression. denies: Homicidal ideation, Suicidal ideation Physical Exam - Vital signs Vitals: Temp Pulse Resp BP Pulse Ox 97.9 F 59 L 16 116/66 98 11/19/18 16:23 11/19/18 16:23 11/19/18 16:23 11/19/18 16:23 11/19/18 16:23 Notes: Physical exam: GENERAL: She is alert and oriented x3, no acute distress HEAD: Atraumatic, normocephalic. EYES: Pupils equal round and reactive to light, extraocular movements intact, sclera anicteric, conjunctiva are normal. ENT: TMs normal, nares patent, oropharynx clear without exudates. Moist mucous membranes. NECK: Normal range of motion, supple without obvious mass or JVD. LUNGS: Breath sounds clear to auscultation bilaterally and equal. No wheezes rales or rhonchi. HEART: Regular rate and rhythm without murmurs, rubs or gallops. ABDOMEN: Soft, normoactive bowel sounds. No tenderness to palpation. No gu arding, no rebound. No masses appreciated. EXTREMITIES: Left index finger: Patient had sutures removed from the DIP crease. There is mild swelling and erythema over this area on the flexor surface. There is no fluctuance. There is no pain with range of motion of the finger or stretching out of the flexor tendon. No suspicion for flexor tenosynovitis or abscess at this point. NEUROLOGICAL: Cranial nerves II through XII grossly intact. Normal speech, moving all extremities. PSYCH: Normal mood, normal affect. SKIN: See above under extremity Course - Re-evaluation Re-evalutation: 11/19/18 17:38 Note: Patient's tetanus is up-to-date. I do not detect any abscess or flexor tenosynovitis on exam. I have advised her to keep the extremity elevated. She is already on Bactrim and I am going to add Keflex. She does report an allergy to penicillin but does states she has had Keflex without any problems in the past. - Vital Signs Vital signs: Temp Pulse Resp BP Pulse Ox 97.9 F 59 L 16 116/66 98 11/19/18 16:23 11/19/18 16:23 11/19/18 16:23 11/19/18 16:23 11/19/18 16:23 - Laboratory Result Diagrams: 11/19/18 16:50 11/19/18 16:50 Laboratory results interpreted by me: 11/19/18 11/19/18 16:50 16:50 RDW 14.3 H BUN 6 L Salicylates 1.2 L Acetaminophen < 10 L Discharge - Discharge Clinical Impression: Left index finger infection Condition: Stable Disposition: HOME, SELF-CARE Additional Instructions: Keep the extremity elevated at night. Take the antibiotics as prescribed. Continue with your Bactrim. Follow-up with your primary care doctor. Return to the emergency room for any worsening redness, swelling, fever (temperature greater than 100.5), or any concerns or getting worse. Prescriptions: Cephalexin Monohydrate [Keflex 500 mg Capsule] 500 mg PO Q6H 5 Days capsule Referrals: SEVERO QUINTANA MD [Primary Care Provider] - Follow up as needed
--- NOTE | 2018-11-19 18:19 | EKG REPORT ---
SEVERITY:- NORMAL ECG - SINUS RHYTHM : Confirmed by: Rocael Lacey MD 19-Nov-2018 18:18:57
== END 2018-11-19 17:53 | disposition home or self-care (01) ==
LOC: ER 16:19
DX: L08.9 Local infection of the skin and subcutaneous tissue, unspecified (principal); Z88.3 Allergy status to other anti-infective agents; Z88.0 Allergy status to penicillin; Z98.51 Tubal ligation status
CPT/HCPCS: 36415; 80053; 80307; 81001; 85025; 93005; 93010; 99284

== ENCOUNTER 2019-03-18 14:15 | Emergency (ER) | payer MEDICAID ==
--- NOTE | 2019-03-18 15:21 | ER Document Report ---
HPI - HPI Patient complains to provider of: Right foot pain and swelling Time Seen by Provider: 03/18/19 15:05 Onset: Other Onset/Duration: Persistent Quality of pain: Achy Severity: Severe Pain Level: 5 Context: Patient presents to the emergency department with complaints of right foot pain and swelling. She reports that she had a rash that turned in the swelling that started in February. denies injury denies history puncture wound. She reports the bottom of her foot is swollen it it is painful to walk or stand on. She denies fever and vomiting but reports she has had some diarrhea. She also reports she feels weak. Patient wears shoes without socks. Associated Symptoms: Diarrhea, Weakness Exacerbated by: Standing Relieved by: Denies Similar symptoms previously: No Recently seen / treated by doctor: No - REPRODUCTIVE Reproductive: DENIES: : Past Medical History - General Information source: Patient Last Menstrual Period: years menopause - Social History Smoking Status: Never Smoker Chew tobacco use (# tins/day): No Frequency of alcohol use: None Drug Abuse: None Family History: Reviewed & Not Pertinent Patient has suicidal ideation: No Patient has homicidal ideation: No Neurological Medical History: Reports: Hx Migraine Renal/ Medical History: Denies: Hx Peritoneal Dialysis Psychiatric Medical History: Reports: Hx Anxiety, Hx Bipolar Disorder, Hx Depression, Hx Schizophrenia Past Surgical History: Reports: Hx Tubal Ligation - Immunizations Hx Diphtheria, Pertussis, Tetanus Vaccination: No Vertical Provider Document - CONSTITUTIONAL Agree With Documented VS: Yes Exam Limitations: No Limitations General Appearance: WD/WN, No Apparent Distress - INFECTION CONTROL TRAVEL OUTSIDE OF THE [place] IN LAST 30 DAYS: No - HEENT HEENT: Atraumatic, Normocephalic - NECK Neck: Supple - RESPIRATORY Respiratory: No Respiratory Distress - CARDIOVASCULAR Cardiovascular: Regular Rate - MUSCULOSKELETAL/EXTREMETIES Musculoskeletal/Extremeties: MAEW, FROM, Tender - Foot tenderness healing sore noted to lateral distal foot, another healing sore noted to medial ankle, plantar foot is slightly swollen, no erythema. Good cap refill good pedal pulse - NEURO Level of Consciousness: Awake, Alert, Appropriate Motor/Sensory: No Motor Deficit - DERM Integumentary: Warm, Dry Course - Re-evaluation Re-evalutation: 03/18/19 15:19 Possibly athlete's foot will do x-ray to evaluate for injury. 03/18/19 16:46 X-ray was negative. Patient was instructed on plan of care was not very happy requesting something stronger than Motrin. I declined at this time. Encouraged her to follow-up with Dr. Brandon giron in then press tender star signal. She verbalized understanding. - Vital Signs Vital signs: Temp Pulse Resp BP Pulse Ox 98.5 F 77 14 139/86 H 97 03/18/19 14:26 03/18/19 14:26 03/18/19 14:26 03/18/19 14:26 03/18/19 14:26 - Diagnostic Test Radiology reviewed: Image reviewed, Reports reviewed - Foot x-ray negative for fracture or osteomyelitis Discharge - Discharge Clinical Impression: Right foot pain Condition: Stable Disposition: HOME, SELF-CARE Additional Instructions: *You have been evaluated for right foot pain *wear socks, keep foot up and elevated *take tylenol or motrin for the pain as indicated *Follow-up with Dr. Walter within the next 5 days *Follow up with a press tender star signal for evaluation *Return to ED for worsening condition, changes, needs Referrals: SEVERO QUINTANA MD [ACTIVE STAFF] - Follow up as needed NORMAN RICE DPM [ACTIVE STAFF] - Follow up in 1 week
--- NOTE | 2019-03-18 15:35 | RADIOLOGY REPORT (SQ) ---
EXAM DESCRIPTION: FOOT RIGHT COMPLETE COMPLETED DATE/TIME: 03/18/2019 3:27 pm REASON FOR STUDY: pain, swelling COMPARISON: None. NUMBER OF VIEWS: Three views. TECHNIQUE: AP, lateral and oblique radiographic images acquired of the right foot. LIMITATIONS: None. FINDINGS: MINERALIZATION: Normal. BONES: No acute fracture or dislocation. No worrisome bone lesions. JOINTS: No effusions. SOFT TISSUES: No soft tissue swelling. No foreign body. OTHER: No other significant finding. IMPRESSION: NEGATIVE STUDY OF THE RIGHT FOOT. NO RADIOGRAPHIC EVIDENCE OF ACUTE INJURY. TECHNICAL DOCUMENTATION: JOB ID: [id number] [employer]- All Rights Reserved Reading location - IP/workstation name: [email or web address]
[2019-03-18] MEDS ORDERED: IBUPROFEN 800 MG TABLET PO ONE (15:58)
[2019-03-18 16:06] VITALS: BP 128/74
== END 2019-03-18 16:00 | disposition home or self-care (01) ==
LOC: ER 14:15
DX: M79.671 Pain in right foot (principal); R19.7 Diarrhea, unspecified; R53.1 Weakness
CPT/HCPCS: 99283; 73630; J3490

== ENCOUNTER → 2019-08-04 | Outpatient (CLI) | payer MEDICAID ==
--- NOTE | 2019-08-04 10:17 | WOMENS IMAGING REPORT ---
EXAM DESCRIPTION: 3D SCREENING MAMMO BILAT COMPLETED DATE/TIME: 08/04/2019 10:04 am REASON FOR STUDY: Z12.31 ENCOUNTER FOR SCREENING MAMMOGRAM FOR MALIGNANT NEOPLASM OF BREAST Z12.31 ENCNTR SCREEN MAMMOGRAM FOR MALIGNANT NEOPLASM OF [place] COMPARISON: [id number] EXAM PARAMETERS: Views: Standard craniocaudal and mediolateral oblique views of each breast recorded using digital acquisition and breast tomosynthesis. Read with the assistance of CAD. .[facility] - [employer] Version 9.2 LIMITATIONS: None. FINDINGS: No suspicious masses, suspicious calcifications or architectural distortion. No areas of c oncern. IMPRESSION: NEGATIVE MAMMOGRAM. BIRADS 1. BREAST DENSITY: b. There are scattered areas of fibroglandular density. BIRAD: ASSESSMENT: 1 NEGATIVE RECOMMENDATION: ROUTINE SCREENING COMMENT: The patient has been notified of the results by letter per MQSA requirements. Additional no tification policies are in place for contacting patient with suspicious or incomplete findings. Quality ID #225: The [employer] recommends an annual screening mammogram for women aged 40 years or over. This facility utilizes a reminder system to ensure that all patients receive reminder letters, and/or direct phone calls for appointments. This includes reminders for routine scr eening mammograms, diagnostic mammograms, or other Breast Imaging Interventions when appropriate. Th is patient will be placed in the appropriate reminder system. TECHNICAL DOCUMENTATION: FINDING NUMBER: (1) ASSESSMENT: (1) JOB ID: [id number] [employer]- All Rights Reserved Reading location - IP/workstation name: [email or web address]
== END ==
LOC: WI 09:33
PROVIDERS: ATTEND Family Medicine
DX: Z12.31 Encounter for screening mammogram for malignant neoplasm of breast (principal)
CPT/HCPCS: 77063; 77067

== ENCOUNTER → 2020-10-26 | Outpatient (CLI) | payer MEDICAID ==
--- NOTE | 2020-10-26 15:58 | WOMENS IMAGING REPORT ---
EXAM DESCRIPTION: BILAT SCREENING MAMMO W/CAD IMAGES COMPLETED DATE/TIME: 10/26/2020 3:31 pm REASON FOR STUDY: Z12.39 ENCOUNTER FOR OTH SCREENING FOR MALIGNANT NEOPLASM OF BREAST Z12.[address] FOR OTH SCREENING FOR MALIGNANT NEOPLASM OF COMPARISON: Priors dating back to 2012 EXAM PARAMETERS: Standard craniocaudal and mediolateral oblique views of each breast recorded using digital acquisition. Read with the assistance of CAD. .[employer] - [employer] Version 9.2 LIMITATIONS: None. FINDINGS: No suspicious masses, suspicious calcifications or architectural distortion. No areas of c oncern. IMPRESSION: NEGATIVE MAMMOGRAM. BIRADS 1 BREAST DENSITY: b. There are scattered areas of fibroglandular density. BIRAD: ASSESSMENT: 1 NEGATIVE RECOMMENDATION: ROUTINE SCREENING COMMENT: The patient has been notified of the results by letter per MQSA requirements. Additional no tification policies are in place for contacting patient with suspicious or incomplete findings. Quality ID #225: The [employer] recommends an annual screening mammogram for women aged 40 years or over. This facility utilizes a reminder system to ensure that all patients receive reminder letters, and/or direct phone calls for appointments. This includes reminders for routine scr eening mammograms, diagnostic mammograms, or other Breast Imaging Interventions when appropriate. Th is patient will be placed in the appropriate reminder system. TECHNICAL DOCUMENTATION: FINDING NUMBER: (1) ASSESSMENT: (1) JOB ID: [id number] 2010 [employer]- All Rights Reserved Reading location - IP/workstation name: [email or web address]
== END ==
LOC: WI 14:58
PROVIDERS: ATTEND Registered Nurse
DX: Z12.31 Encounter for screening mammogram for malignant neoplasm of breast (principal)
CPT/HCPCS: 77067

== ENCOUNTER 2020-11-27 16:05 | Emergency (ER) | payer OTHER, MEDICAID ==
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
[2020-11-27] MEDS ORDERED: MORPHINE SULFATE 10 MG/ML INJ IV ONE (17:11)
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
[2020-11-27 17:13] LABS: ABSOLUTE BASOPHILS # (AUTO) 0.1 10^3/uL (0.0-0.2); ABSOLUTE EOSINOPHILS # (AUTO) 0.1 10^3/uL (0.0-0.6); ABSOLUTE LYMPHOCYTES (AUTO) 1.7 10^3/uL (0.5-4.7); ABSOLUTE MONOCYTES (AUTO) 0.6 10^3/uL (0.1-1.4); ABSOLUTE NEUT (AUTO) 7.6 10^3/uL (1.7-8.2); BASOPHILS % (AUTO) 0.8 % (0-2); EOSINOPHILS % (AUTO) 0.7 % (0-6); HEMATOCRIT 40.6 % (36.0-47.0); LYMPHOCYTES % (AUTO) 17.1 % (13-45); MEAN CORPUSCULAR HEMOGLOBIN 31.9 pg (27.0-33.4); MEAN CORPUSCULAR HGB CONC 34.6 g/dL (32.0-36.0); MEAN CORPUSCULAR VOLUME 92 fl (80-97); MONOCYTES % (AUTO) 5.7 % (3-13); PLATELET COUNT 286 10^3/uL (150-450); RED BLOOD COUNT 4.41 10^6/uL (3.72-5.28); RED CELL DISTRIBUTION WIDTH 14.3 % (11.5-14.0); SEGMENTED NEUTROPHILS % (AUTO) 75.7 % (42-78); TOTAL CELLS COUNTED % (AUTO) 100 %
[2020-11-27 17:34] LABS: ALBUMIN 4.1 g/dL (3.5-5.0); ALKALINE PHOSPHATASE 106 U/L (38-126); ANION GAP 6 (5-19); ASPARTATE AMINO TRANSFERASE 26 U/L (14-36); BILIRUBIN,DIRECT 0.2 mg/dL (0.0-0.4); BILIRUBIN,TOTAL 0.6 mg/dL (0.2-1.3); BLOOD UREA NITROGEN 11 mg/dL (7-20); CALCIUM 9.4 mg/dL (8.4-10.2); CARBON DIOXIDE 26 mmol/L (22-30); CHLORIDE 109 mmol/L (98-107); GLUCOSE 100 mg/dL (75-110); TOTAL PROTEIN 6.8 g/dL (6.3-8.2)
[2020-11-27 17:37] LABS: APPEARANCE,URINE SLIGHTLY-CLOUDY; BILIRUBIN,URINE NEGATIVE (NEGATIVE); COLOR,URINE YELLOW; GLUCOSE, URINE NEGATIVE (NEGATIVE); KETONES,URINE NEGATIVE (NEGATIVE); LEUKOCYTE ESTERASE,URINE MODERATE (NEGATIVE); NITRITE,URINE NEGATIVE (NEGATIVE); PROTEIN,URINE NEGATIVE (NEGATIVE); URINE SPECIFIC GRAVITY 1.004; UROBILINOGEN,URINE NEGATIVE mg/dL (<2.0)
[2020-11-27 17:38] LABS: ALCOHOL < 10 mg/dL (NONE DETECTED)
--- NOTE | 2020-11-27 18:01 | EKG REPORT ---
SEVERITY:- BORDERLINE ECG - SINUS RHYTHM PROBABLE LEFT ATRIAL ABNORMALITY : Confirmed by: Rocael Lacey MD 27-Nov-2020 18:01:06
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
[2020-11-27 19:11] VITALS: BP 130/78
== END 2020-11-27 19:16 | disposition home or self-care (01) ==
LOC: ER 16:05
DX: S20.219A Contusion of unspecified front wall of thorax, initial encounter (principal); D35.02 Benign neoplasm of left adrenal gland; R41.3 Other amnesia; R07.81 Pleurodynia; R10.9 Unspecified abdominal pain; R10.2 Pelvic and perineal pain; V89.0XXA Person injured in unspecified motor-vehicle accident, nontraffic, initial encounter; Z88.3 Allergy status to other anti-infective agents; Z88.0 Allergy status to penicillin; Z98.51 Tubal ligation status
CPT/HCPCS: 93005; 99285; 96374; 36415; 87086; 80307; 83690; 84703; 85025; 87088; 80053; 81001; 70450; 71260; 72125; 74177; 93010; J2270; 87186